=== PATIENT | male | born 1955 | race Caucasian/White ===

== ENCOUNTER 2017-10-23 04:17 | Inpatient (IN) | payer OTHER ==
[2017-10-23] MEDS: SOD CHLORIDE 0.9% 1,950 ML IV (05:22)
[2017-10-23 05:30] LABS: WHITE BLOOD COUNT 12.7 10^3/ul (4.8-10.8)
[2017-10-23 05:30] LABS: ADD MAN DIFF? NO; HEMATOCRIT 26.4 % (42.0-52.0); HEMOGLOBIN 7.9 g/dl (14.0-18.0); MEAN CORPUSCULAR VOLUME 59.1 fl (82.0-101.0); RED BLOOD COUNT 4.47 10^6/ul (4.70-6.10)
[2017-10-23 05:31] LABS: ABNORMAL IP MESSAGE 1; BASOPHILS % 0.1 % (0.0-2.0); LYMPHOCYTES # 0.3 10^3/ul (0.8-2.9); LYMPHOCYTES % 2.4 % (15.0-51.0); MEAN CORPUSCULAR HEMOGLOBIN 17.7 pg (29.0-33.0); MEAN CORPUSCULAR HGB CONC 29.9 g/dl (32.0-37.0); MEAN PLATELET VOLUME 9.6 fl (7.4-10.4); MONOCYTE # 0.6 10^3/ul (0.3-0.9); MONOCYTES % 4.6 % (0.0-11.0); NEUTROPHIL # 11.7 10^3/ul (1.6-7.5); NEUTROPHILS % 92.2 % (39.0-77.0); PLATELET COUNT 493 10^3/UL (140-415); POSITIVE DIFF @See below; RED CELL DISTRIBUTION WIDTH 18.4 % (11.5-14.5)
[2017-10-23 05:50] LABS: INR 1.43; PROTIME 17.7 Sec (11.9-14.9); PT RATIO 1.4
[2017-10-23 05:51] LABS: ALANINE AMINOTRANSFERASE 86 IU/L (13-69); ALBUMIN 3.1 g/dl (3.3-4.9); ALBUMIN/GLOBULIN RATIO 0.77; ALKALINE PHOSPHATASE 250 IU/L (42-121); ANION GAP 15 (8-16); ASPARTATE AMINO TRANSFERASE 84 IU/L (15-46); BILIRUBIN,INDIRECT 1.4 mg/dl (0-1.1); BILIRUBIN,TOTAL 1.4 mg/dl (0.2-1.3); BLOOD UREA NITROGEN 35 mg/dl (7-20); CALCIUM 8.4 mg/dl (8.4-10.2); CARBON DIOXIDE 21 mmol/L (21-31); CHLORIDE 100 mmol/L (97-110); CREATININE 1.19 mg/dl (0.61-1.24); GLUCOSE 161 mg/dl (70-220); PARTIAL THROMBOPLASTIN TIME 36.9 Sec (25.0-35.0); POTASSIUM 4.5 mmol/L (3.5-5.1); SODIUM 131 mmol/L (135-144); TOTAL PROTEIN 7.1 g/dl (6.1-8.1)
[2017-10-23 05:53] LABS: LACTIC ACID 3.4 mmol/L (0.5-2.0)
[2017-10-23] MEDS: PIPER-TAZO 3.375 GM IV (PMX) 100 ML IVPB ×3 (06:13→18:47)
[2017-10-23 06:36] LABS: TROPONIN-I < 0.012 ng/ml (0.00-0.12)
[2017-10-23 06:52] LABS: IMMEDIATE SPIN CROSSMATCH 1 4
[2017-10-23] MEDS: SOD CHLORIDE 0.9% 1,000 ML IV ×3 (07:04→23:06)
[2017-10-23] MEDS: SOD CHLORIDE 0.9% 500 ML IV (07:30)
[2017-10-23] MEDS ORDERED: VANCOMYCIN IV PER PHARMACY XX (07:30)
[2017-10-23] MEDS: VANCOMYCIN 1 GM 250 ML IVPB ×2 (08:32→19:54)
[2017-10-23] MEDS: PANTOPRAZOLE 40 MG INJ IV ×3 (08:32→23:05)
[2017-10-23 09:17] LABS: LACTIC ACID 1.3 mmol/L (0.5-2.0)
[2017-10-23 09:50] LABS: URINE PH (Dip) POC 5.5 (5.0-8.5)
[2017-10-23 09:50] LABS: URINE BLOOD (Dip) POC Negative (NEGATIVE); URINE GLUCOSE (Dip) POC Negative (NEGATIVE); URINE KETONES (Dip) POC Negative (NEGATIVE); URINE LEUKOCYTE EST (Dip) POC Negative (NEGATIVE); URINE NITRITE (Dip) POC Negative (NEGATIVE); URINE TOTAL PROTEIN POC Trace (NEGATIVE)
[2017-10-23 10:09] LABS: ADD UMIC NO; UR ASCORBIC ACID NEGATIVE (NEGATIVE); UR BILIRUBIN (Dip) NEGATIVE (NEGATIVE); UR BLOOD (Dip) NEGATIVE (NEGATIVE); UR CLARITY CLEAR (CLEAR); UR COLOR YELLOW (YELLOW); UR GLUCOSE (Dip) NEGATIVE (NEGATIVE); UR KETONES (Dip) NEGATIVE (NEGATIVE); UR LEUKOCYTE ESTERASE (Dip) NEGATIVE Leu/ul (NEGATIVE); UR NITRITE (Dip) NEGATIVE (NEGATIVE); UR TOTAL PROTEIN (Dip) NEGATIVE (NEGATIVE); UR UROBILINOGEN (Dip) 1+ mg/dL (NEGATIVE)
[2017-10-23 10:21] LABS: IRON < 10 ug/dl (35-150)
[2017-10-23 10:31] LABS: TOTAL IRON BINDING CAPACITY 212 ug/dl (241-421)
[2017-10-23] MEDS: HYDROmorphONE 0.5 MG/0.5 ML SYG IV ×2 (11:18→17:25)
[2017-10-23] MEDS: SOD FERRIC GLUC COMPLX 125 MG in SOD CHLORIDE 0.9% 100 ML IVPB (11:18)
[2017-10-23] MEDS: metroNIDAZOLE 500 MG TAB PO ×3 (11:18→23:05)
[2017-10-23 14:20] LABS: HEPATITIS C VIRAL ANTIBODY NEGATIVE (NEGATIVE)
[2017-10-23] MEDS: LIDOCAINE 1% (MDV) 20 ML INJ (15:11)
[2017-10-23 16:52] LABS: HEMATOCRIT 22.3 % (42.0-52.0); HEMOGLOBIN 7.1 g/dl (14.0-18.0)
[2017-10-23 17:08] LABS: LACTIC ACID 1.1 mmol/L (0.5-2.0)
[2017-10-23] MEDS: ACETAMINOPHEN 1000MG/100ML IV 100 ML IVPB (17:37)
[2017-10-23 20:07] LABS: HEMOGLOBIN 6.6 g/dl (14.0-18.0)
[2017-10-24] MEDS: PIPER-TAZO 3.375 GM IV (PMX) 100 ML IVPB ×5 (00:23→23:37)
[2017-10-24] MEDS: SOD CHLORIDE 0.9% 1,000 ML IV ×4 (03:30→23:37)
[2017-10-24] MEDS: metroNIDAZOLE 500 MG TAB PO ×3 (05:40→22:47)
[2017-10-24 05:51] LABS: WHITE BLOOD COUNT 16.2 10^3/ul (4.8-10.8)
[2017-10-24 05:51] LABS: ABNORMAL IP MESSAGE 1; HEMATOCRIT 26.8 % (42.0-52.0); HEMOGLOBIN 8.7 g/dl (14.0-18.0); MEAN CORPUSCULAR HEMOGLOBIN 22.4 pg (29.0-33.0); MEAN CORPUSCULAR HGB CONC 32.5 g/dl (32.0-37.0); MEAN CORPUSCULAR VOLUME 68.9 fl (82.0-101.0); MEAN PLATELET VOLUME 9.4 fl (7.4-10.4); NUCLEATED RED BLOOD CELLS% 0.1 /100WBC (0.0-0.0); PLATELET COUNT 277 10^3/UL (140-415); POSITIVE DIFF @See below; RED BLOOD COUNT 3.89 10^6/ul (4.70-6.10); RED CELL DISTRIBUTION WIDTH 26.4 % (11.5-14.5)
[2017-10-24] MEDS ORDERED: PANTOPRAZOLE 40 MG INJ IV (06:00)
[2017-10-24 06:11] LABS: ALANINE AMINOTRANSFERASE 89 IU/L (13-69); ALKALINE PHOSPHATASE 166 IU/L (42-121); ANION GAP 11 (8-16); ASPARTATE AMINO TRANSFERASE 129 IU/L (15-46); BILIRUBIN,TOTAL 5.2 mg/dl (0.2-1.3); BLOOD UREA NITROGEN 24 mg/dl (7-20); CALCIUM 7.6 mg/dl (8.4-10.2); CARBON DIOXIDE 17 mmol/L (21-31); CHLORIDE 113 mmol/L (97-110); CREATININE 0.63 mg/dl (0.61-1.24); GLUCOSE 102 mg/dl (70-220); MAGNESIUM 2.2 mg/dl (1.7-2.5); POTASSIUM 3.9 mmol/L (3.5-5.1); SODIUM 137 mmol/L (135-144); TOTAL PROTEIN 5.3 g/dl (6.1-8.1)
[2017-10-24 06:14] LABS: ADD MAN DIFF? YES
[2017-10-24] MEDS: VANCOMYCIN 1 GM 250 ML IVPB ×2 (07:45→20:59)
[2017-10-24 07:49] LABS: AADO2 Arterial 104.3 mmHg (7.0-24.0); Allen Test ACCEPTAB; Arterial Base Excess -6.4 mmol/L (-3.0-3); Arterial Blood Gas Oxygen Sat 94.2 mmHG (95.0-98.0); Arterial COHb 0.4 % (0.0-3.0); Arterial Fraction of Oxyhgb 93.6 % (93.0-99.0); Arterial HCO3 17.4 mmol/L (22.0-26.0); Arterial MetHb 0.2 % (0.0-1.5); Arterial pCO2 28.9 mmhg (35-45); MODE NASAL CANNULA; Site Right Radial
[2017-10-24 08:27] LABS: ANISOCYTOSIS 2+ (0-0); BAND NEUTROPHILS % (M) 19 % (0-4); BURR CELLS 3+ (0-0); GIANT THROMBO% (M) 1 % (0-0); HYPOCHROMASIA 2+ (0-0); LYMPHOCYTES #M 0.1 10^3/ul (0.8-2.9); LYMPHOCYTES % (M) 1 % (15-51); MICROCYTOSIS 2+ (0-0); MONOCYTE #M 0.3 10^3/ul (0.3-0.9); MONOCYTES % (M) 2 % (0-11); OVALOCYTES 2+ (0-0); PLATELET ESTIMATE NORMAL; PLATELET MORPHOLOGY COMMENT @See below; POIKILOCYTOSIS 3+ (0-0); POLYCHROMASIA 1+ (0-0); SEG NEUT #M 13.1 10^3/ul (1.6-7.5); SEGMENTED NEUTROPHILS (M) % 78 % (39-77); SMUDGE%M 2 % (0-0)
[2017-10-24] MEDS: FINASTERIDE 5 MG TAB PO (09:29)
[2017-10-24] MEDS: CALCIUM CARBONATE 750 MG CHEW TAB PO ×3 (09:29→21:01)
[2017-10-24] MEDS: PANTOPRAZOLE 40 MG INJ IV ×2 (09:29→20:59)
[2017-10-24] MEDS: SOD FERRIC GLUC COMPLX 125 MG in SOD CHLORIDE 0.9% 100 ML IVPB (09:35)
[2017-10-24 19:41] LABS: VANCOMYCIN,TROUGH 7.3 ug/ml (10.0-20.0)
[2017-10-25] MEDS: metroNIDAZOLE 500 MG TAB PO ×3 (05:36→21:01)
[2017-10-25] MEDS: PIPER-TAZO 3.375 GM IV (PMX) 100 ML IVPB ×4 (05:36→23:58)
[2017-10-25 05:46] LABS: AADO2 Arterial 124.6 mmHg (7.0-24.0); Allen Test ACCEPTAB; Arterial Base Excess -4.5 mmol/L (-3.0-3); Arterial Blood Gas Oxygen Sat 94.6 mmHG (95.0-98.0); Arterial COHb 0.3 % (0.0-3.0); Arterial Fraction of Oxyhgb 94.1 % (93.0-99.0); Arterial HCO3 18.7 mmol/L (22.0-26.0); Arterial MetHb 0.2 % (0.0-1.5); Arterial pCO2 27.9 mmhg (35-45); MODE NASAL CANNULA; Site Left Radial
[2017-10-25 06:24] LABS: ADD MAN DIFF? NO
[2017-10-25 06:33] LABS: WHITE BLOOD COUNT 17.5 10^3/ul (4.8-10.8)
[2017-10-25 06:33] LABS: ABNORMAL IP MESSAGE 1; BASOPHILS % 0.1 % (0.0-2.0); HEMATOCRIT 27.1 % (42.0-52.0); HEMOGLOBIN 8.9 g/dl (14.0-18.0); LYMPHOCYTES # 0.4 10^3/ul (0.8-2.9); LYMPHOCYTES % 2.3 % (15.0-51.0); MEAN CORPUSCULAR HEMOGLOBIN 22.3 pg (29.0-33.0); MEAN CORPUSCULAR HGB CONC 32.8 g/dl (32.0-37.0); MEAN CORPUSCULAR VOLUME 67.8 fl (82.0-101.0); MEAN PLATELET VOLUME 9.3 fl (7.4-10.4); MONOCYTE # 0.5 10^3/ul (0.3-0.9); MONOCYTES % 2.9 % (0.0-11.0); NEUTROPHIL # 16.4 10^3/ul (1.6-7.5); NEUTROPHILS % 93.7 % (39.0-77.0); PLATELET COUNT 271 10^3/UL (140-415); POSITIVE DIFF @See below; RED CELL DISTRIBUTION WIDTH 26.3 % (11.5-14.5)
[2017-10-25 06:49] LABS: INR 1.71; PROTIME 20.4 Sec (11.9-14.9); PT RATIO 1.6
[2017-10-25 06:50] LABS: PARTIAL THROMBOPLASTIN TIME 40.4 Sec (25.0-35.0)
[2017-10-25 06:58] LABS: LACTIC ACID 0.9 mmol/L (0.5-2.0)
[2017-10-25 06:59] LABS: MAGNESIUM 2.1 mg/dl (1.7-2.5)
[2017-10-25 07:04] LABS: ALANINE AMINOTRANSFERASE 68 IU/L (13-69); ALBUMIN 1.9 g/dl (3.3-4.9); ALBUMIN/GLOBULIN RATIO 0.59; ALKALINE PHOSPHATASE 142 IU/L (42-121); AMYLASE 38 U/L (11-123); ANION GAP 11 (8-16); ASPARTATE AMINO TRANSFERASE 56 IU/L (15-46); BILIRUBIN,INDIRECT 1.3 mg/dl (0-1.1); BILIRUBIN,TOTAL 3.2 mg/dl (0.2-1.3); BLOOD UREA NITROGEN 25 mg/dl (7-20); CARBON DIOXIDE 19 mmol/L (21-31); CHLORIDE 113 mmol/L (97-110); CREATININE 0.61 mg/dl (0.61-1.24); GLUCOSE 96 mg/dl (70-220); LIPASE 13 U/L (23-300); POTASSIUM 3.5 mmol/L (3.5-5.1); SODIUM 139 mmol/L (135-144); TOTAL PROTEIN 5.1 g/dl (6.1-8.1)
[2017-10-25] MEDS: VANCOMYCIN 1 GM 250 ML IVPB (07:52)
[2017-10-25] MEDS: PANTOPRAZOLE 40 MG INJ IV ×2 (07:52→21:01)
[2017-10-25] MEDS: CALCIUM CARBONATE 750 MG CHEW TAB PO ×3 (07:53→21:00)
[2017-10-25] MEDS: SOD CHLORIDE 0.9% 1,000 ML IV ×3 (09:04→23:59)
[2017-10-25] MEDS: SOD FERRIC GLUC COMPLX 125 MG in SOD CHLORIDE 0.9% 100 ML IVPB (12:26)
[2017-10-25] MEDS: HYDROmorphONE 0.5 MG/0.5 ML SYG IV ×2 (15:19→21:01)
[2017-10-25] MEDS: VANCOMYCIN 1.5 GM in SOD CHLORIDE 0.9% 250 ML IVPB (19:27)
[2017-10-26] MEDS: HYDROmorphONE 0.5 MG/0.5 ML SYG IV ×2 (04:18→11:27)
[2017-10-26] MEDS: metroNIDAZOLE 500 MG TAB PO ×3 (05:01→21:05)
[2017-10-26] MEDS: PIPER-TAZO 3.375 GM IV (PMX) 100 ML IVPB ×3 (05:01→17:49)
[2017-10-26 06:09] LABS: ADD MAN DIFF? NO
[2017-10-26 06:23] LABS: WHITE BLOOD COUNT 18.7 10^3/ul (4.8-10.8)
[2017-10-26 06:23] LABS: ABNORMAL IP MESSAGE 1; BASOPHILS % 0.1 % (0.0-2.0); EOSINOPHILS % 0.1 % (0.0-7.0); HEMATOCRIT 26.3 % (42.0-52.0); HEMOGLOBIN 8.5 g/dl (14.0-18.0); LYMPHOCYTES # 0.5 10^3/ul (0.8-2.9); LYMPHOCYTES % 2.8 % (15.0-51.0); MEAN CORPUSCULAR HEMOGLOBIN 22.1 pg (29.0-33.0); MEAN CORPUSCULAR HGB CONC 32.3 g/dl (32.0-37.0); MEAN CORPUSCULAR VOLUME 68.3 fl (82.0-101.0); MEAN PLATELET VOLUME 9.8 fl (7.4-10.4); MONOCYTE # 0.8 10^3/ul (0.3-0.9); NEUTROPHIL # 17.2 10^3/ul (1.6-7.5); NEUTROPHILS % 91.8 % (39.0-77.0); PLATELET COUNT 271 10^3/UL (140-415); POSITIVE DIFF @See below; RED BLOOD COUNT 3.85 10^6/ul (4.70-6.10); RED CELL DISTRIBUTION WIDTH 27.6 % (11.5-14.5)
[2017-10-26 06:45] LABS: BLOOD UREA NITROGEN 25 mg/dl (7-20); CARBON DIOXIDE 23 mmol/L (21-31); CHLORIDE 114 mmol/L (97-110); CREATININE 0.64 mg/dl (0.61-1.24); GLUCOSE 87 mg/dl (70-220); SODIUM 142 mmol/L (135-144)
[2017-10-26] MEDS: VANCOMYCIN 1.5 GM in SOD CHLORIDE 0.9% 250 ML IVPB ×2 (07:45→20:40)
[2017-10-26] MEDS: PANTOPRAZOLE 40 MG INJ IV ×2 (07:45→20:40)
[2017-10-26] MEDS: CALCIUM CARBONATE 750 MG CHEW TAB PO ×3 (07:45→20:42)
[2017-10-26] MEDS: SOD FERRIC GLUC COMPLX 125 MG in SOD CHLORIDE 0.9% 100 ML IVPB (07:46)
[2017-10-26] MEDS: SOD CHLORIDE 0.9% 1,000 ML IV ×2 (09:52→09:54)
[2017-10-26 10:08] LABS: ANION GAP 9 (8-16)
[2017-10-26 10:10] LABS: POTASSIUM 3.5 mmol/L (3.5-5.1)
[2017-10-26 10:38] LABS: ALANINE AMINOTRANSFERASE 52 IU/L (13-69); ALBUMIN 1.7 g/dl (3.3-4.9); ALKALINE PHOSPHATASE 134 IU/L (42-121); ASPARTATE AMINO TRANSFERASE 39 IU/L (15-46); BILIRUBIN,INDIRECT 0.8 mg/dl (0-1.1); BILIRUBIN,TOTAL 1.4 mg/dl (0.2-1.3); TOTAL PROTEIN 4.6 g/dl (6.1-8.1)
[2017-10-26] MEDS: ONDANSETRON 4 MG INJ IV (15:32)
[2017-10-27] MEDS: PIPER-TAZO 3.375 GM IV (PMX) 100 ML IVPB ×4 (00:36→18:37)
[2017-10-27] MEDS: HYDROmorphONE 0.5 MG/0.5 ML SYG IV ×3 (02:24→22:38)
[2017-10-27] MEDS: SOD CHLORIDE 0.9% 1,000 ML IV ×3 (02:25→21:04)
[2017-10-27] MEDS: metroNIDAZOLE 500 MG TAB PO (05:10)
[2017-10-27 07:30] LABS: ADD MAN DIFF? NO
[2017-10-27 07:44] LABS: ABNORMAL IP MESSAGE 1; BASOPHILS % 0.1 % (0.0-2.0); EOSINOPHILS % 0.1 % (0.0-7.0); HEMATOCRIT 26.4 % (42.0-52.0); HEMOGLOBIN 8.3 g/dl (14.0-18.0); LYMPHOCYTES # 0.6 10^3/ul (0.8-2.9); LYMPHOCYTES % 4.4 % (15.0-51.0); MEAN CORPUSCULAR HEMOGLOBIN 21.8 pg (29.0-33.0); MEAN CORPUSCULAR HGB CONC 31.4 g/dl (32.0-37.0); MEAN CORPUSCULAR VOLUME 69.5 fl (82.0-101.0); MEAN PLATELET VOLUME 9.2 fl (7.4-10.4); MONOCYTE # 0.8 10^3/ul (0.3-0.9); MONOCYTES % 5.3 % (0.0-11.0); NEUTROPHIL # 12.7 10^3/ul (1.6-7.5); NEUTROPHILS % 88.6 % (39.0-77.0); PLATELET COUNT 252 10^3/UL (140-415); POSITIVE DIFF @See below; RED CELL DISTRIBUTION WIDTH 28.5 % (11.5-14.5)
[2017-10-27 07:44] LABS: WHITE BLOOD COUNT 14.4 10^3/ul (4.8-10.8)
[2017-10-27 08:01] LABS: ALANINE AMINOTRANSFERASE 48 IU/L (13-69); ALBUMIN 1.9 g/dl (3.3-4.9); ALKALINE PHOSPHATASE 188 IU/L (42-121); ASPARTATE AMINO TRANSFERASE 37 IU/L (15-46); BILIRUBIN,INDIRECT 0.5 mg/dl (0-1.1); BILIRUBIN,TOTAL 0.5 mg/dl (0.2-1.3); TOTAL PROTEIN 4.7 g/dl (6.1-8.1)
[2017-10-27 08:07] LABS: VANCOMYCIN,TROUGH 10.7 ug/ml (10.0-20.0)
[2017-10-27] MEDS: CALCIUM CARBONATE 750 MG CHEW TAB PO ×3 (08:42→20:44)
[2017-10-27] MEDS: PANTOPRAZOLE 40 MG INJ IV ×2 (08:42→20:44)
[2017-10-27] MEDS: SOD FERRIC GLUC COMPLX 125 MG in SOD CHLORIDE 0.9% 100 ML IVPB (08:42)
[2017-10-27] MEDS: VANCOMYCIN 1.5 GM in SOD CHLORIDE 0.9% 250 ML IVPB (08:42)
[2017-10-27] MEDS: VANCOMYCIN 1.75 GM in D5W 500 ML IVPB (23:29)
[2017-10-28 00:42] LABS: HEMATOCRIT 26.6 % (42.0-52.0); HEMOGLOBIN 8.4 g/dl (14.0-18.0)
[2017-10-28] MEDS: PIPER-TAZO 3.375 GM IV (PMX) 100 ML IVPB ×4 (03:50→18:07)
[2017-10-28 05:21] LABS: ADD MAN DIFF? NO
[2017-10-28 05:32] LABS: ABNORMAL IP MESSAGE 1; BASOPHILS % 0.1 % (0.0-2.0); EOSINOPHILS # 0.1 10^3/ul (0.0-0.5); EOSINOPHILS % 0.6 % (0.0-7.0); HEMATOCRIT 27.6 % (42.0-52.0); HEMOGLOBIN 8.6 g/dl (14.0-18.0); LYMPHOCYTES # 0.8 10^3/ul (0.8-2.9); LYMPHOCYTES % 7.1 % (15.0-51.0); MEAN CORPUSCULAR HEMOGLOBIN 21.8 pg (29.0-33.0); MEAN CORPUSCULAR HGB CONC 31.2 g/dl (32.0-37.0); MEAN CORPUSCULAR VOLUME 69.9 fl (82.0-101.0); MEAN PLATELET VOLUME 9.9 fl (7.4-10.4); MONOCYTE # 0.8 10^3/ul (0.3-0.9); NEUTROPHIL # 9.8 10^3/ul (1.6-7.5); PLATELET COUNT 253 10^3/UL (140-415); POSITIVE DIFF @See below; RED BLOOD COUNT 3.95 10^6/ul (4.70-6.10); RED CELL DISTRIBUTION WIDTH 29.1 % (11.5-14.5)
[2017-10-28 05:32] LABS: WHITE BLOOD COUNT 11.9 10^3/ul (4.8-10.8)
[2017-10-28] MEDS: SOD CHLORIDE 0.9% 1,000 ML IV ×2 (07:04→18:09)
[2017-10-28] MEDS: PANTOPRAZOLE 40 MG INJ IV ×2 (09:24→21:01)
[2017-10-28] MEDS: CALCIUM CARBONATE 750 MG CHEW TAB PO ×3 (09:25→21:04)
[2017-10-28 12:09] LABS: HEMATOCRIT 27.8 % (42.0-52.0); HEMOGLOBIN 8.7 g/dl (14.0-18.0)
[2017-10-28] MEDS: VANCOMYCIN 1.75 GM in D5W 500 ML IVPB ×2 (13:45→23:51)
[2017-10-28] MEDS: HYDROmorphONE 0.5 MG/0.5 ML SYG IV (14:10)
[2017-10-28 18:07] LABS: HEMATOCRIT 28.5 % (42.0-52.0); HEMOGLOBIN 8.8 g/dl (14.0-18.0)
[2017-10-29 01:04] LABS: HEMATOCRIT 28.1 % (42.0-52.0); HEMOGLOBIN 8.9 g/dl (14.0-18.0)
[2017-10-29] MEDS: PIPER-TAZO 3.375 GM IV (PMX) 100 ML IVPB ×5 (01:14→21:17)
[2017-10-29] MEDS: SOD CHLORIDE 0.9% 1,000 ML IV ×2 (03:04→13:04)
[2017-10-29 05:09] LABS: ADD MAN DIFF? NO
[2017-10-29 05:16] LABS: WHITE BLOOD COUNT 13.5 10^3/ul (4.8-10.8)
[2017-10-29 05:16] LABS: ABNORMAL IP MESSAGE 1; BASOPHILS % 0.1 % (0.0-2.0); EOSINOPHILS % 0.3 % (0.0-7.0); HEMATOCRIT 29.5 % (42.0-52.0); HEMOGLOBIN 9.5 g/dl (14.0-18.0); LYMPHOCYTES # 1.3 10^3/ul (0.8-2.9); LYMPHOCYTES % 9.3 % (15.0-51.0); MEAN CORPUSCULAR HEMOGLOBIN 22.4 pg (29.0-33.0); MEAN CORPUSCULAR HGB CONC 32.2 g/dl (32.0-37.0); MEAN CORPUSCULAR VOLUME 69.4 fl (82.0-101.0); MEAN PLATELET VOLUME 9.5 fl (7.4-10.4); MONOCYTE # 0.9 10^3/ul (0.3-0.9); MONOCYTES % 6.8 % (0.0-11.0); NEUTROPHIL # 10.8 10^3/ul (1.6-7.5); NEUTROPHILS % 79.7 % (39.0-77.0); PLATELET COUNT 251 10^3/UL (140-415); POSITIVE DIFF @See below; RED BLOOD COUNT 4.25 10^6/ul (4.70-6.10); RED CELL DISTRIBUTION WIDTH 30.1 % (11.5-14.5)
[2017-10-29 05:36] LABS: ANION GAP 9 (8-16); BLOOD UREA NITROGEN 13 mg/dl (7-20); CALCIUM 7.5 mg/dl (8.4-10.2); CARBON DIOXIDE 24 mmol/L (21-31); CHLORIDE 110 mmol/L (97-110); CREATININE 0.58 mg/dl (0.61-1.24); GLUCOSE 126 mg/dl (70-220); POTASSIUM 3.6 mmol/L (3.5-5.1); SODIUM 139 mmol/L (135-144)
[2017-10-29] MEDS ORDERED: VANCOMYCIN 1.75 GM in D5W 500 ML IVPB (06:30)
[2017-10-29] MEDS: PANTOPRAZOLE 40 MG INJ IV ×2 (08:03→21:14)
[2017-10-29] MEDS: CALCIUM CARBONATE 750 MG CHEW TAB PO ×3 (08:29→21:22)
[2017-10-29 10:35] LABS: INR 1.56; PT RATIO 1.5
[2017-10-29 10:37] LABS: PARTIAL THROMBOPLASTIN TIME 39.8 Sec (25.0-35.0)
[2017-10-29 11:06] LABS: HEMATOCRIT 28.2 % (42.0-52.0)
[2017-10-29 11:24] LABS: VANCOMYCIN,TROUGH 14.1 ug/ml (10.0-20.0)
[2017-10-29] MEDS: VANCOMYCIN 1.75 GM in D5W 500 ML IVPB (11:46)
[2017-10-29] MEDS: FUROSEMIDE 20 MG INJ IV (12:13)
[2017-10-29 12:32] LABS: TYPE AND SCREEN 1 1
[2017-10-29] MEDS: MIDAZOLAM 1 MG/ML 2 ML INJ (16:08)
[2017-10-29] MEDS: PROPOFOL 20 ML (16:08)
[2017-10-29] MEDS: FENTAnyl 50 MCG/ML VIAL (16:09)
[2017-10-29] MEDS: LIDOCAINE 1% (MDV) 20 ML INJ (16:14)
[2017-10-30] MEDS: SOD CHLORIDE 0.9% 1,000 ML IV (02:24)
[2017-10-30 04:56] LABS: WHITE BLOOD COUNT 10.5 10^3/ul (4.8-10.8)
[2017-10-30 04:56] LABS: ABNORMAL IP MESSAGE 1; ADD MAN DIFF? NO; BASOPHILS % 0.1 % (0.0-2.0); EOSINOPHILS % 0.2 % (0.0-7.0); HEMOGLOBIN 8.6 g/dl (14.0-18.0); LYMPHOCYTES # 0.8 10^3/ul (0.8-2.9); LYMPHOCYTES % 7.7 % (15.0-51.0); MEAN CORPUSCULAR HEMOGLOBIN 22.4 pg (29.0-33.0); MEAN CORPUSCULAR HGB CONC 31.9 g/dl (32.0-37.0); MEAN CORPUSCULAR VOLUME 70.3 fl (82.0-101.0); MONOCYTE # 0.7 10^3/ul (0.3-0.9); MONOCYTES % 6.6 % (0.0-11.0); NEUTROPHIL # 8.7 10^3/ul (1.6-7.5); NEUTROPHILS % 83.3 % (39.0-77.0); PLATELET COUNT 234 10^3/UL (140-415); POSITIVE DIFF @See below; RED BLOOD COUNT 3.84 10^6/ul (4.70-6.10)
[2017-10-30 05:47] LABS: ANION GAP 9 (8-16); BLOOD UREA NITROGEN 14 mg/dl (7-20); CALCIUM 7.5 mg/dl (8.4-10.2); CARBON DIOXIDE 30 mmol/L (21-31); CHLORIDE 110 mmol/L (97-110); CREATININE 0.77 mg/dl (0.61-1.24); GLUCOSE 108 mg/dl (70-220); POTASSIUM 3.4 mmol/L (3.5-5.1); SODIUM 146 mmol/L (135-144)
[2017-10-30 05:50] LABS: PHOSPHORUS 4.1 mg/dl (2.5-4.9)
[2017-10-30 05:50] LABS: MAGNESIUM 1.8 mg/dl (1.7-2.5)
[2017-10-30] MEDS: PIPER-TAZO 3.375 GM IV (PMX) 100 ML IVPB ×4 (06:10→23:35)
[2017-10-30] MEDS: VANCOMYCIN 1.75 GM in D5W 500 ML IVPB ×2 (07:08→18:14)
[2017-10-30] MEDS: PANTOPRAZOLE 40 MG INJ IV ×2 (08:12→20:52)
[2017-10-30] MEDS: CALCIUM CARBONATE 750 MG CHEW TAB PO ×3 (08:13→20:52)
[2017-10-30] MEDS: SOD CHLORIDE 0.45% 1,000 ML IV ×2 (10:01→20:00)
[2017-10-30] MEDS: HYDROmorphONE 0.5 MG/0.5 ML SYG IV ×2 (12:30→20:52)
[2017-10-31] MEDS: SOD CHLORIDE 0.45% 1,000 ML IV ×2 (03:32→05:05)
[2017-10-31] MEDS: PIPER-TAZO 3.375 GM IV (PMX) 100 ML IVPB ×4 (05:05→23:37)
[2017-10-31 05:30] LABS: ADD MAN DIFF? NO
[2017-10-31 05:40] LABS: WHITE BLOOD COUNT 11.6 10^3/ul (4.8-10.8)
[2017-10-31 05:40] LABS: ABNORMAL IP MESSAGE 1; BASOPHILS % 0.2 % (0.0-2.0); EOSINOPHILS # 0.1 10^3/ul (0.0-0.5); EOSINOPHILS % 0.7 % (0.0-7.0); HEMATOCRIT 26.3 % (42.0-52.0); HEMOGLOBIN 8.1 g/dl (14.0-18.0); LYMPHOCYTES # 0.7 10^3/ul (0.8-2.9); LYMPHOCYTES % 6.3 % (15.0-51.0); MEAN CORPUSCULAR HGB CONC 30.8 g/dl (32.0-37.0); MEAN CORPUSCULAR VOLUME 71.3 fl (82.0-101.0); MEAN PLATELET VOLUME 9.7 fl (7.4-10.4); MONOCYTE # 0.7 10^3/ul (0.3-0.9); MONOCYTES % 5.8 % (0.0-11.0); NEUTROPHIL # 9.9 10^3/ul (1.6-7.5); NEUTROPHILS % 85.7 % (39.0-77.0); PLATELET COUNT 221 10^3/UL (140-415); POSITIVE DIFF @See below; RED BLOOD COUNT 3.69 10^6/ul (4.70-6.10); RED CELL DISTRIBUTION WIDTH 29.5 % (11.5-14.5)
[2017-10-31] MEDS: VANCOMYCIN 1.75 GM in D5W 500 ML IVPB ×2 (05:52→17:58)
[2017-10-31 06:41] LABS: ANION GAP 7 (8-16); BLOOD UREA NITROGEN 16 mg/dl (7-20); CALCIUM 7.3 mg/dl (8.4-10.2); CARBON DIOXIDE 28 mmol/L (21-31); CHLORIDE 108 mmol/L (97-110); CREATININE 0.89 mg/dl (0.61-1.24); GLUCOSE 111 mg/dl (70-220); POTASSIUM 3.1 mmol/L (3.5-5.1); SODIUM 140 mmol/L (135-144)
[2017-10-31] MEDS: PANTOPRAZOLE 40 MG INJ IV (09:12)
[2017-10-31] MEDS: CALCIUM CARBONATE 750 MG CHEW TAB PO ×3 (09:12→21:15)
[2017-10-31] MEDS: POTASSIUM CHLORIDE (SR) 20 MEQ TAB PO (15:17)
[2017-10-31] MEDS: FUROSEMIDE 20 MG INJ IV (15:20)
[2017-10-31] MEDS: PANTOPRAZOLE (EC) 40 MG TAB PO (17:58)
[2017-11-01 05:03] LABS: ADD MAN DIFF? NO
[2017-11-01 05:09] LABS: WHITE BLOOD COUNT 11.4 10^3/ul (4.8-10.8)
[2017-11-01 05:09] LABS: ABNORMAL IP MESSAGE 1; BASOPHILS % 0.1 % (0.0-2.0); EOSINOPHILS # 0.1 10^3/ul (0.0-0.5); EOSINOPHILS % 0.4 % (0.0-7.0); HEMATOCRIT 25.1 % (42.0-52.0); LYMPHOCYTES # 0.7 10^3/ul (0.8-2.9); LYMPHOCYTES % 6.2 % (15.0-51.0); MEAN CORPUSCULAR HEMOGLOBIN 22.3 pg (29.0-33.0); MEAN CORPUSCULAR HGB CONC 31.9 g/dl (32.0-37.0); MEAN CORPUSCULAR VOLUME 70.1 fl (82.0-101.0); MEAN PLATELET VOLUME 9.5 fl (7.4-10.4); MONOCYTE # 0.7 10^3/ul (0.3-0.9); NEUTROPHIL # 9.9 10^3/ul (1.6-7.5); NEUTROPHILS % 86.5 % (39.0-77.0); PLATELET COUNT 221 10^3/UL (140-415); POSITIVE DIFF @See below; RED BLOOD COUNT 3.58 10^6/ul (4.70-6.10)
[2017-11-01] MEDS: PANTOPRAZOLE (EC) 40 MG TAB PO ×2 (05:28→17:09)
[2017-11-01] MEDS: PIPER-TAZO 3.375 GM IV (PMX) 100 ML IVPB ×2 (05:30→13:16)
[2017-11-01 05:36] LABS: ANION GAP 8 (8-16); BLOOD UREA NITROGEN 16 mg/dl (7-20); CALCIUM 7.5 mg/dl (8.4-10.2); CARBON DIOXIDE 27 mmol/L (21-31); CHLORIDE 110 mmol/L (97-110); GLUCOSE 106 mg/dl (70-220); POTASSIUM 3.3 mmol/L (3.5-5.1); SODIUM 142 mmol/L (135-144)
[2017-11-01 05:49] LABS: VANCOMYCIN,TROUGH 28.2 ug/ml (10.0-20.0)
[2017-11-01] MEDS: VANCOMYCIN 1.75 GM in D5W 500 ML IVPB (06:01)
[2017-11-01] MEDS: CALCIUM CARBONATE 750 MG CHEW TAB PO ×3 (08:08→20:45)
[2017-11-01] MEDS: CEFTRIAXONE 1 GM/50 ML (PMX) 50 ML IVPB (17:09)
[2017-11-02] MEDS: LEVOFLOXACIN 750 MG TABLET PO (05:13)
[2017-11-02] MEDS: PANTOPRAZOLE (EC) 40 MG TAB PO ×2 (05:14→18:14)
[2017-11-02 05:29] LABS: ADD MAN DIFF? NO
[2017-11-02 05:50] LABS: ANION GAP 7 (8-16); BLOOD UREA NITROGEN 15 mg/dl (7-20); CALCIUM 7.8 mg/dl (8.4-10.2); CARBON DIOXIDE 29 mmol/L (21-31); CHLORIDE 111 mmol/L (97-110); CREATININE 1.05 mg/dl (0.61-1.24); GLUCOSE 101 mg/dl (70-220); POTASSIUM 3.3 mmol/L (3.5-5.1); SODIUM 144 mmol/L (135-144)
[2017-11-02 06:13] LABS: ABNORMAL IP MESSAGE 1; BASOPHILS % 0.2 % (0.0-2.0); EOSINOPHILS % 0.4 % (0.0-7.0); HEMATOCRIT 24.5 % (42.0-52.0); HEMOGLOBIN 7.8 g/dl (14.0-18.0); LYMPHOCYTES # 0.8 10^3/ul (0.8-2.9); LYMPHOCYTES % 6.8 % (15.0-51.0); MEAN CORPUSCULAR HEMOGLOBIN 22.5 pg (29.0-33.0); MEAN CORPUSCULAR HGB CONC 31.8 g/dl (32.0-37.0); MEAN CORPUSCULAR VOLUME 70.6 fl (82.0-101.0); MEAN PLATELET VOLUME 10.4 fl (7.4-10.4); MONOCYTE # 0.7 10^3/ul (0.3-0.9); MONOCYTES % 6.3 % (0.0-11.0); NEUTROPHIL # 9.4 10^3/ul (1.6-7.5); NEUTROPHILS % 85.8 % (39.0-77.0); PLATELET COUNT 270 10^3/UL (140-415); POSITIVE DIFF @See below; RED BLOOD COUNT 3.47 10^6/ul (4.70-6.10)
[2017-11-02] MEDS: HYDROCODONE/APAP (5/325) TAB PO (06:19)
[2017-11-02] MEDS: CALCIUM CARBONATE 750 MG CHEW TAB PO ×3 (08:29→21:15)
[2017-11-02] MEDS: SOD FERRIC GLUC COMPLX 125 MG in SOD CHLORIDE 0.9% 100 ML IVPB (16:20)
[2017-11-02] MEDS: POTASSIUM CHLORIDE (SR) 20 MEQ TAB PO (16:21)
[2017-11-02] MEDS: TAMSULOSIN (SR) 0.4 MG CAP PO (21:15)
[2017-11-03] MEDS: PANTOPRAZOLE (EC) 40 MG TAB PO ×2 (05:38→18:00)
[2017-11-03] MEDS: LEVOFLOXACIN 750 MG TABLET PO (05:38)
[2017-11-03 05:58] LABS: ADD MAN DIFF? NO
[2017-11-03 06:09] LABS: ABNORMAL IP MESSAGE 1; BASOPHILS % 0.2 % (0.0-2.0); EOSINOPHILS % 0.4 % (0.0-7.0); HEMATOCRIT 25.1 % (42.0-52.0); HEMOGLOBIN 7.7 g/dl (14.0-18.0); LYMPHOCYTES # 0.8 10^3/ul (0.8-2.9); LYMPHOCYTES % 6.8 % (15.0-51.0); MEAN CORPUSCULAR HEMOGLOBIN 22.3 pg (29.0-33.0); MEAN CORPUSCULAR HGB CONC 30.7 g/dl (32.0-37.0); MEAN CORPUSCULAR VOLUME 72.5 fl (82.0-101.0); MEAN PLATELET VOLUME 10.1 fl (7.4-10.4); MONOCYTE # 0.7 10^3/ul (0.3-0.9); MONOCYTES % 6.7 % (0.0-11.0); NEUTROPHIL # 9.5 10^3/ul (1.6-7.5); NEUTROPHILS % 85.4 % (39.0-77.0); PLATELET COUNT 270 10^3/UL (140-415); POSITIVE DIFF @See below; RED BLOOD COUNT 3.46 10^6/ul (4.70-6.10)
[2017-11-03 06:09] LABS: WHITE BLOOD COUNT 11.1 10^3/ul (4.8-10.8)
[2017-11-03] MEDS: CALCIUM CARBONATE 750 MG CHEW TAB PO ×2 (07:53→13:28)
[2017-11-03] MEDS ORDERED: INFLUENZA VIRUS VACCINE 0.5 ML (DISPENSING) IM* (09:00)
[2017-11-03] MEDS: SOD FERRIC GLUC COMPLX 125 MG in SOD CHLORIDE 0.9% 100 ML IVPB (13:28)
== END 2017-11-03 19:10 | disposition home or self-care (01) | DRG 871 ==
LOC: MS1 10-27 17:15 → E/R 04:17 → ICU 07:08
PROVIDERS: Family Medicine
PROC: 30233N1 Transfusion of Nonautologous Red Blood Cells into Peripheral Vein, Percutaneous Approach (ICD-10-PCS; 2017-10-23)
PROC: 0F9030Z Drainage of Liver with Drainage Device, Percutaneous Approach (ICD-10-PCS; 2017-10-25)
PROC: 0DB68ZX Excision of Stomach, Via Natural or Artificial Opening Endoscopic, Diagnostic (ICD-10-PCS; principal; 2017-10-27)
PROC: 0F9130Z Drainage of Right Lobe Liver with Drainage Device, Percutaneous Approach (ICD-10-PCS; 2017-10-29)
PROC: 30233K1 Transfusion of Nonautologous Frozen Plasma into Peripheral Vein, Percutaneous Approach (ICD-10-PCS; 2017-10-29)
PROC: 0FP0X0Z Removal of Drainage Device from Liver, External Approach (ICD-10-PCS; 2017-11-03)
DX: A41.9 Sepsis, unspecified organism (principal); K75.0 Abscess of liver; E87.2 Acidosis; K81.0 Acute cholecystitis; K27.4 Chronic or unspecified peptic ulcer, site unspecified, with hemorrhage; K83.8 Other specified diseases of biliary tract; N28.1 Cyst of kidney, acquired; K29.71 Gastritis, unspecified, with bleeding; R65.20 Severe sepsis without septic shock; D50.0 Iron deficiency anemia secondary to blood loss (chronic); N40.0 Benign prostatic hyperplasia without lower urinary tract symptoms; K44.9 Diaphragmatic hernia without obstruction or gangrene; B96.1 Klebsiella pneumoniae [K. pneumoniae] as the cause of diseases classified elsewhere; R79.89 Other specified abnormal findings of blood chemistry
CPT/HCPCS: 36415; 36430; 36589; 36600; 71045; 74176; 74181; 75989; 77012; 78226; 80048; 80053; 80076; 80202; 81003; 82150; 82728; 82803; 83540; 83605; 83690; 83735; 84100; 84484; 85014; 85018; 85025; 85610; 85730; 86803; 86850; 86900; 86901; 86920; 87040; 87070; 87075; 87081; 87086; 93005; 93306; 96361; 96365; 96366; 96367; 96375; 96376; 97110; 97116; 97163; 97530; 99291-25; J1940